=== PATIENT | male | born 2000 | race Caucasian/White ===

== ENCOUNTER 2024-01-10 08:56 | Outpatient (CLI) | payer BC, SELFPAY ==
--- NOTE | ~2024-01-10 | US_ITS ---
Limited ABDOMINAL ULTRASOUND Ordering provider: Sophia Meraz PA-C History: . Elevated LFT . Comparison: None. FINDINGS: LIVER: Normal size and echotexture. No focal hepatic lesions or perihepatic fluid collections are ami ntified. Portal vein flow is normal. GALLBLADDER: Unremarkable. No evidence for stones, sludge, gallbladder wall thickening or pericholecy stic fluid collections. Wall thickness is 1.6 mm. A negative sonographic Patterson's sign was noted. BILIARY DUCTS: No evidence for intra or extrahepatic biliary dilation. Common bile duct measures 2 mm in diameter which is within normal limits. PANCREAS: Normal echotexture and size. UPPER ABDOMINAL AORTA: Normal in caliber. IMPRESSION: Unremarkable complete ultrasound of the abdomen. Reviewed, dictated and finalized at location A.
== END 2024-01-10 08:57 | disposition home or self-care (01) ==
PROVIDERS: PCP Family Medicine; Visit Provider Physician Assistant Medical
DX: R79.89 Other specified abnormal findings of blood chemistry (principal)
CPT/HCPCS: 76705

== ENCOUNTER 2024-08-17 12:57 | Outpatient (CLI) | payer BC, SELFPAY ==
[2024-09-10 12:42] VITALS: BMI 29.8
--- NOTE | 2024-09-10 12:42 | WPDSLEEPSTUD ---
Sleep Study Date of Study: 08/17/24 Ordering Provider: Sandra Lombardo MD Interpreting Physician: Avis Douglas DO Sleep Study Type: Polysomnogram Height: 1.83 m Weight: 99.79 kg Body Mass Index: 29.8 Neck Circumference (inches): 17 [place]: 16 Reason for Sleep Study Daytime hypersomnia Sleep History The patient is a 24-year-old male that had a sleep study ordered by his primary care for evaluation of daytime hypersomnia. The patient denies awakening from sleep short of breath. He occasionally awakens at night with heartburn, belching or cough. He constantly snores loud enough that others complain. He rarely has trouble sleeping when he has a cold. He denies waking up gasping for air throughout the night. He constantly has breathing problems at night observed by himself or others. He rarely sweats excessively at night. He rarely has heart palpitations or irregular heartbeats during the night. He constantly falls asleep during the day but never while driving. He denies sleep paralysis and cataplexy. He constantly has trouble at school or work due to sleepiness. He rarely experiences vivid dreamlike scenes upon awakening or falling asleep. He denies feeling afraid of going to sleep. He rarely has nightmares. He rarely remembers his dreams. He rarely has thoughts racing through his mind. He rarely feels sad or depressed. He denies having anxiety. He frequently has muscular tension. He frequently notices parts of his body jerk. He rarely kicks during the night. He rarely has crawling and aching feelings in his legs but denies having leg pain during the night. He occasionally grinds his teeth during sleep but never awakens with morning jaw pain. He is constantly bothered by pain during the day and occasionally awakened by pain during the night. He frequently wakes up feeling stiff in the morning. He constantly wakes up with sore or achy muscles. He constantly wakes up with pain in the neck, spine and other joints. He goes to bed at 10:30 p.m. on weekdays andd between 11:00 p.m. to 1:00 a.m. on the weekends. He is usually able to fall asleep relatively quickly. He wakes up 1-4 times throughout the night to adjust his position is able to fall back asleep immediately. He wakes up at 6:20 a.m. on weekdays and between 9-930 a.m. on the weekends. He stays in bed for 5 minutes after waking up in the morning. He currently lives with his . He denies consuming any caffeinated beverages within 2 hours of bedtime. He denies engaging in physical exercise before bedtime. He denies reading before falling asleep. He will watch television before falling asleep. He will take naps in afternoon or the evening but they refreshing. He consumes 1 caffeinated beverage per day. He quit smoking cigarettes 2 years ago. He denies alcohol and recreational drug PMFSH Past Medical History Medical History Obstructive sleep apnea syndrome Family History Family History Grandparent Cerebrovascular accident Thyroid disorder Social History Social History Smoking status: Former smoker Second hand tobacco smoke exposure: No Alcohol intake: current Alcohol use details: 1-3 x week Substance use: never Substance use type: does not use Do You Feel Safe in your Home?: Yes Lack of Transportation: No Lack of Food: Never True Current Housing: I Have Housing Concerned About Future Housing: No Difficulty Paying Gas/Electric Bills: No Difficulty Paying for Meds: No Education: High School Diploma/GED Difficulty w/ Childcare or Family Care: No Living arrangements: with family Gender identity (if verbalized by the patient): Male Sexual Orientation (if Verbalized by the Patient): Straight or Heterosexual Spiritual care concerns: No Medications Home Medications ?Medication ?Instructions ?Recorded ?Confirmed ?Type omeprazole 20 mg capsule,delayed 20 mg PO DAILY #30 caps 07/04/24 07/04/24 Rx release Sleep Procedure A full night polysomnogram using the [employer] SleepEverpurse multi-channel system recorded the standard physiologic parameters including EEG, EOG, submentalis EMG, anterior tibialis EMG, EKG, body position, nasal and oral airflow using nasal pressure sensor and thermistor.? Respiratory parameters of chest and abdominal movements were recorded with Respiratory Inductance Plethysmography belts. Oxygen saturation was recorded by pulse oximetry. Video monitoring was also performed. Sleep stages, periodic limb movements, and EEG arousals were scored in 30 second epochs according to the criteria of the AASM Scoring Manual. The Apnea-Hypopnea Index was calculated using [facility] guidelines for definition of hypopnea with 4% O2 desaturations while scoring respiratory events. Sleep Architecture The total recording time was 407.9 minutes.? The total sleep time was 393.5 minutes. Sleep latency was 0.0 minutes. REM latency was 67.4 minutes. Sleep efficiency was 96.5%. The patient had 22 awakenings for an awakening index of 3.4. Wake after sleep onset time was 14.5 minutes. The patient spent 21.5 minutes, 5.5% of total sleep time in Stage N1. The patient spent 178.0 minutes, 45.2% in Stage N2. The patient spent 84.0 minutes, 21.3% in Stage N3. The patient spent 110.0 minutes, 28.0% in Stage REM sleep. Respiratory Analysis The patient had 9 hypopneas for an overall Apnea Hypopnea Index of 1.5. The REM Apnea Hypopnea Index was 3.8. The NREM Apnea Hypopnea Index was 1.1. The patient had a Central Apnea Hypopnea Index of 0. There was no evidence of Tobin-Paz Respirations. Arousals There were 35 total arousals for an arousal index of 5.3. There were 25 spontaneous arousals for an index of 3.8. There were 4 arousals due to respiratory events for an index of 0.6. There were 0 arousals due to periodic limb movements for an index of 0.? There were 6 arousals due to isolated limb movements for an index of 0.9. Periodic Limb Movements The patient had 21 isolated limb movements with an index of 3.2. The patient had 6 periodic limb movements with an index of 0.9. Patient had a total of 27 limb movements with a total limb movement index of 4.1. Oximetry Data The patient had an average oxygen saturation of 95.6% in sleep with a minimum oxygen saturation of 83.0% and a maximum oxygen saturation of 98.0%. The patient had 13 oxygen desaturations that were 4% or greater resulting in an Oxygen Desaturation Index of 2.0.? The patient spent 0.3 minutes, 0.1% of total sleep time with an oxygen saturation below 88%. Snoring Profile Mild to moderate snoring was present intermittently throughout the study. Cardiac Profile The EKG showed normal sinus rhythm.?No arrhythmias or premature beats were seen. The patient had an average pulse rate of 55.7 bpm with a minimum pulse of rate of 42.0 bpm and a maximum pulse rate of 98.0 bpm.? EEG Profile No signs of seizure activity seen. Assessment and Plan Assessment and Plan (1) Excessive daytime sleepiness: Code(s): G47.19 - Other hypersomnia Status: Acute Assessment and Plan: The patient had an overall AHI of 1.5 with desaturation down to 83%. This is not consistent with sleep disordered breathing. Due to the patient's previous sleep study showing sleep apnea, there is a high suspicion of this test being a false negative. Not all nights of sleep are equal and a negative study on one night does not exclude the possibility of sleep apnea. The majority of the patient's respiratory events occurred during REM sleep while he was in the supine position. I recommend that the patient have a home sleep test with the use of a hypnotic (Lunesta 2-3 mg or Ambien 5-10 mg) to ensure we obtain enough sleep data. I also recommend that he try to sleep in the supine position as much as possible during that test. Data The data obtained during this sleep study is adequate for interpretation. Certification This sleep study has been reviewed by a board certified sleep medicine physician.
== END 2024-08-18 07:02 | disposition home or self-care (01) ==
LOC: ANHCSM 13:01
PROVIDERS: PCP Family Medicine; Visit Provider Family Medicine
DX: G47.33 Obstructive sleep apnea (adult) (pediatric) (principal); G47.19 Other hypersomnia
CPT/HCPCS: 95810